=== PATIENT | female | born 1980 ===

== ENCOUNTER 2018-03-02 09:24 | Emergency (ER) | payer OTHER ==
[~2018-03-02] VITALS: Ht 142.2 cm; Wt 50.8 kg
[2018-03-02] MEDS ORDERED: CIPRO500 MG PO (16:50)
== END 2018-03-02 17:00 | disposition home or self-care (01) ==
LOC: ER 09:24
DX: N92.1 Excessive and frequent menstruation with irregular cycle (principal); E86.0 Dehydration; R53.1 Weakness

== ENCOUNTER 2018-03-03 02:23 | Emergency (ER) | payer OTHER ==
[~2018-03-03] VITALS: Ht 152.4 cm; Wt 39.5 kg
[~2018-03-03 02:23] MED LIST: CIPRO500 MG PO
== END 2018-03-03 14:23 | disposition home or self-care (01) ==
LOC: ER 02:23
DX: N93.8 Other specified abnormal uterine and vaginal bleeding (principal); R10.2 Pelvic and perineal pain

== ENCOUNTER 2018-03-29 06:10 | Day surgery (SDC) | payer OTHER ==
[~2018-03-29 06:10] MED LIST changes: +AMBIEN5 MG PO; +CLONAZEPAM0.5 MG PO; +FLUOXETINE HCL20 MG PO; +KETOROLAC TROME10 MG PO
[2018-03-29] MEDS ORDERED: DOXYCYCLINE HY100 MG PO (09:01)
[2018-03-29] MEDS ORDERED: CODE1TAB37 PO (09:01)
== END 2018-03-29 13:50 | disposition home or self-care (01) ==
LOC: CIR.AMB 06:10
DX: N84.0 Polyp of corpus uteri (principal); D25.0 Submucous leiomyoma of uterus